=== PATIENT | female | born 1960 | race Hispanic/Latino ===

== ENCOUNTER → 2018-11-07 | Outpatient (CLI) | payer BC | END | disposition home or self-care (01) | LOC: RAH 07:56 | PROVIDERS: ATTEND Internal Medicine Gastroenterology | DX: K21.9 Gastro-esophageal reflux disease without esophagitis (principal) | CPT/HCPCS: 74220 ==

== ENCOUNTER → 2024-03-27 | Outpatient (CLI) | payer BC ==
--- NOTE | 2024-03-27 14:33 | HMCIMG ---
CT LOW EXT W/O CONTRAST HISTORY: Left hip disorder COMPARISON: None TECHNIQUE: Multiple sequential axial images of the left hip were obtained including post processing sagittal and coronal reconstruction images. Patient was not given contrast through intravenous route. FINDINGS: Bony osteopenia is seen. Orthopedic fixation plates and screws are seen traversing the proximal femur. No acute displaced fracture or dislocation is seen. Evaluation is limited because by artifacts from the prosthesis. No acute displaced fracture or dislocation is seen. There is muscle atrophy or fatty replacement noted involving the anterior lateral thigh musculature. Degenerative changes are seen. IMPRESSION: 1. No fracture is seen. Findings as described above. CT was performed with one or more following dose reduction techniques: automated exposure control, adjustment of the mA and kv according to patient's size, or use of a iterative reconstruction technique.
--- NOTE | 2024-03-27 15:34 | HMCIMG ---
MR HIP LEFT WO HISTORY: Left hip pain COMPARISON: None TECHNIQUE: MRI of the left hip was performed utilizing multiple pulse sequences in axial, coronal and sagittal planes. Patient was not given contrast through intravenous route. FINDINGS: The study is limited due to paramagnetic susceptibility artifacts caused by orthopedic fixation plates and screws. This is a suboptimal study. Left hip joint cannot be well evaluated. No definite MR evidence of bone edema is seen in this limited study. IMPRESSION: 1. Suboptimal study due to extensive artifacts from orthopedic fixation plates and screws of the left proximal femur.
== END | disposition home or self-care (01) ==
LOC: RAH 13:07
PROVIDERS: ATTEND Orthopaedic Surgery
DX: M16.12 Unilateral primary osteoarthritis, left hip (principal); M62.58 Muscle wasting and atrophy, not elsewhere classified, other site; M85.88 Other specified disorders of bone density and structure, other site; M89.252 Other disorders of bone development and growth, left femur; M89.9 Disorder of bone, unspecified
CPT/HCPCS: 73700; 73721

== ENCOUNTER 2024-06-26 06:32 | Observation (INO) | payer BC ==
[2024-06-24 11:12] LABS: CREATININE 0.5 mg/dL (0.5-1.0); POTASSIUM 5.8 mmol/L (3.5-5.1)
[2024-06-24 11:15] VITALS: BP_SYST 162; BP_SYST 184; BP_DIAS 74; PULSE 73; RESP 18; TEMP 97.7
[2024-06-24 11:55] LABS: BASOPHILS # (AUTO) 0.04 K/uL (0.00-0.20); EOSINOPHILS # (AUTO) 0.29 K/uL (0.00-0.70); EOSINOPHILS % (AUTO) 7.5 % (0.0-8.0); HEMATOCRIT 40.1 % (36-48); IMMATURE GRANULOCYTE ABSOLUTE 0.01 K/uL (0-1); LYMPHOCYTES # (AUTO) 1.8 K/uL (1.0-4.8); LYMPHOCYTES % (AUTO) 45.8 % (21.0-51.0); MEAN CORPUSCULAR HEMOGLOBIN 29.9 pg (27.0-33.0); MEAN CORPUSCULAR HGB CONC 32.9 g/dL (32.0-36.0); MEAN CORPUSCULAR VOLUME 90.9 fL (79-99); MONOCYTES # (AUTO) 0.4 K/uL (0.1-1.0); MONOCYTES % (AUTO) 9.5 % (3.0-13.0); NEUTROPHILS # (AUTO) 1.4 K/uL (1.8-7.7); NEUTROPHILS % (AUTO) 35.9 % (40.0-77.0); PLATELET COUNT (AUTO) 235 K/uL (130-400); RED BLOOD CELL COUNT(AUTO) 4.41 MIL/uL (4.00-5.50); RED CELL DISTRIBUTION WIDTH 12.7 % (11.0-15.5); WHITE BLOOD COUNT (AUTO) 3.9 K/uL (4.8-10.8)
--- NOTE | 2024-06-25 10:18 | NUR ---
RE:LABS REPORTED BMP RESULTS TO DR ARAUJO, RECEIVED ORDERS TO REPEAT POTASSIUM IN AM.
[2024-06-26] VITALS (26 sets, daily range): BP systolic 101–176; BP diastolic 38–84; PULSE 48–80; RESP 14–18; TEMP 97.4–97.6; O2SAT 0–96
[~2024-06-26] VITALS: Ht 144.8 cm; Wt 76.3 kg
[~2024-06-26 06:32] MED LIST: ACET-2247 PO; IBUP-1673 PO; LEVO75CA6 PO
[2024-06-26] MEDS ORDERED: LACTATED RINGERS 1000ML IV SCH (07:30)
[2024-06-26] MEDS: ceFAZolin SODIUM 2 GM VIAL ONE (08:17)
[2024-06-26] MEDS: LACTATED RINGERS 1000ML 1,000 ML IV ONE (08:18)
[2024-06-26] MEDS ORDERED: LIDOCAINE HCL MPF 1% 5ML VIAL ONE (08:59)
[2024-06-26] MEDS ORDERED: proPOFol 10 MG/ML 20ML VIAL IV ONE (09:00)
[2024-06-26] MEDS ORDERED: MIDAZOLAM HCL 1 MG/ML 2ML VIAL ONE (09:01)
[2024-06-26] MEDS ORDERED: FENTanyl CITRate PF 50 MCG/1 ML 2ML VIAL ONE ×2 (09:01→12:11)
[2024-06-26] MEDS ORDERED: ROPivacaine 0.5% 5MG/ML 30ML ONE (09:08)
[2024-06-26] MEDS ORDERED: ceFAZolin SODIUM 1 GM VIAL ONE (09:42)
[2024-06-26] MEDS ORDERED: NEOSTIGMINE METHYLSULFATE 1MG/ML IV ONE (09:47)
[2024-06-26] MEDS ORDERED: GLYCOPYRROLATE 0.2 MG/ML 5 ML VIAL ONE (09:47)
[2024-06-26] MEDS ORDERED: phenylEPHRINE HCL 10 MG/ML 1ML VIAL IV ONE (09:47)
[2024-06-26] MEDS: ceFAZolin SODIUM 2 GM VIAL IVPB ONE (10:00)
[2024-06-26] MEDS: ceFAZolin SODIUM 1 GM VIAL IRRIG ONE (11:01)
--- NOTE | 2024-06-26 12:52 | OP ---
Operative Note: DATE OF PROCEDURE: 06/26/24 SURGEON: ERLIN LU MD UNIFORM MAKER: [Phylicia Rivera CFA] ANESTHESIA: [General anesthesia plus regional block] ANESTHESIOLOGIST/INNER TUBE TUBER MACHINE OPERATOR: [Noris Jean CRNA] PREOPERATIVE DIAGNOSIS: [Painful hardware left hip] POSTOPERATIVE DIAGNOSIS: [Same plus trochanteric bursitis] PROCEDURE: [Removal of DHS plate, bone allograft placement, bursectomy] ESTIMATED BLOOD LOSS: [100 mL] INDICATIONS: [The patient is a 64-year-old female with history of pain to the left hip present in the lateral and anterior aspect of the joint. The patient has a history of a femur fracture in the past that was the proximally more than 20 years ago and that was then redone 20 years ago with a DHS plate. The pat ient has complained of pain and the studies have been negative but we are not able to do an MRI due to the metal artifact we saw in the CT scan. Because the patient has been in the lateral aspect of the hip we are going to remove the late and the hip screw in the same time bone allograft of the femoral neck to assist with the healing and prevent the fracture. Procedure understood, risks, benefits and possible complications and the patient agreed signed the consent] DESCRIPTION OF PROCEDURE: [After adequate general anesthesia and regional block applied the patient was placed in the right lateral decubitus and the left lower extremity prepped and draped in the usual manner. The patient had a long surgical scar in the lateral aspect of the thigh but it was not in relation to the proximal femur and for the wrist and a separate incision was carried down from the proximal aspect of with the plate was and distal to the skin followed by incision of the thick subcutaneous tissue. The tensor fascia valorie was then opened longitudinally and the tip of the plate was identified and noted that there was some bursitis and inflammation fluid which was removed and the bursa debrided. Then we proceeded to open the vastus lateralis posteriorly and in a longitudinal manner exposed in the plate. First the proceeded to remove the locking screw in the hip screw area and then the three cortical screws present in the lateral aspect of the femur. Then with the use of an osteotome we are able to elevate the plate and this was removed. We had significant difficulty removing the hip screw requiring significant time and required multiple instruments until we finally were able to remove it. The wound was copiously irrigated with antibiotic solution the femoral neck defect was debrided with a curette and after this was achieved with the use of the C-arm for evaluation we proceeded then to back cancellous allograft 30 cc into the femoral neck using the C-arm for assistance. The bone adequate was 1st obtained and put in a solution with Ancef for 15 minutes before morselizing it and then passing it to the OR table to be applied. Once the grafting was completed we proceeded then to irrigate the wound and proceeded to close it with a approximation of the vastus lateralis with #1 Vicryl crossed stitches followed by approximation of the tensor fascia valorie with #1 Vicryl crossed stitches]. The subcutaneous tissue was closed in two layers the deeper one with the same kind of Vicryl single stitches in the subcutaneous wound with a 2-0 Vicryl inverted stitches. The skin was then approximated with 3-0 Monocryl subcuticularly. Dermabond was placed to cover the incision and this a soft dressing was applied to protected. The drapes were then removed, the patient was not to the bed and taken to re covery room for follow-up by anesthesia. Final x-rays were obtained after the closure. ERLIN LU MD June 26, 2024 12:52
[2024-06-26] MEDS ORDERED: DiphenhydrAMINE HCL 25 MG CAPSULE PO PRN (13:00)
[2024-06-26] MEDS ORDERED: HYDROcodone/APAP 5/325 1 TAB TABLET PO PRN (13:00)
[2024-06-26] MEDS: 0.9%NACL 1000ML 1,000 ML IV SCH (13:00)
[2024-06-26] MEDS: FENTanyl CITRate PF 50 MCG/1 ML 2ML VIAL ONE (13:20)
--- NOTE | 2024-06-26 14:44 | HMCIMG ---
Fluoroscopic guidance History: ORIF LEFT HIP, REVISION, SX Fluoroscopic guidance provided. Procedure by ordering physician in operating room suite with fluoroscopic guidance. Several spot images were obtained. Impression: Fluoroscopic guidance.
[2024-06-26] MEDS: HYDROcodone/APAP 5/325 1 TAB TABLET PO PRN (15:22)
[2024-06-26] MEDS: ketOROlac 30MG VIAL (30MG/ML) IV PRN (16:47)
--- NOTE | 2024-06-26 19:03 | NUR ---
Pt has not voided. Informed nightman TEST GRADER.
--- NOTE | 2024-06-26 19:30 | NUR ---
unable to void unable to void , bladder distended, bladder scanner performed showing 760 cc urine in bladder, straight cath performed by female nurse meghan jackson rn using 16 ukrainian catheter using aseptic technique, obtained 900 cc of clear yellow urine, tolerated well, patient stated " I FEEL MUCH BETTER THANK YOU' INSTRUCT PATIENT TO CALL NURSE WHEN URGE TO VOID, REINFORCE IS PREVIOUSLY DONE WITH MAXIMUM VOLUME INSPIRATION ON 1250 , CALL GRACE AT REACH
[2024-06-26] MEDS: ceFAZolin SODIUM 2 GM VIAL IVPB SCH (19:35)
[2024-06-26] MEDS: FAMOTIDINE 20MG TAB PO SCH (19:37)
[2024-06-27] VITALS: BP 109/60; PULSE 65; RESP 18; TEMP 97.6
--- NOTE | 2024-06-27 03:30 | NUR ---
unable to void unable to void, c/o pain to bladder, bladder scan performed reading 600, called dr le informed with orders, f/c 16 gauge placed by joseph duran lvn obtained 700 cc of clear yellow urine, tolerated well,per dr. le leave f/c indwelling
[2024-06-27 04:00] VITALS: BP 132/65; PULSE 71; RESP 18; TEMP 98
[2024-06-27] MEDS: levoTHYROxine 75 MCG TABLET ONE (05:28)
[2024-06-27] MEDS: levoTHYROxine 75 MCG TABLET PO SCH (06:17)
[2024-06-27 08:00] VITALS: BP 124/61; PULSE 75; RESP 18; TEMP 98; O2SAT 95
[2024-06-27] MEDS: polyETHYLene GLYCol 3350 17 GM POWD.PACK PO SCH (08:30)
[2024-06-27] MEDS: ENOXAPARIN SODIUM 40 MG/0.4 ML SYRINGE SQ SCH (08:31)
--- NOTE | 2024-06-27 12:50 | PN ---
Postop day 1., status post left hip hardware removal, bone allograft placement in the femoral neck. Vital signs stable, afebrile. The patient was supposed to be released today being only on observation but she developed urinary retention very early this morning and a Rodriguez catheter had to be inserted after 2nd bladder evacuation was performed. The patient is doing well. She reports that her pain level is different than before surgery and is in the controlled. She did okay with PT this morning. Her dressing is intact. Her distal neurovascular exam is normal. Assessment: Status post hardware removal left hip. Plan: The patient will be having her Rodriguez catheter removed at six in the morning and see if she can urinate on her own tomorrow morning or afternoon and then dismiss home. Continue with physical therapy Vitals/Labs Vital Signs Date Time Temp Pulse Resp B/P (MAP) Pulse Ox O2 Delivery O2 Flow Rate FiO2 06/27/24 08:00 98.1 75 18 124/61 95 Room Air 06/27/24 04:00 21 06/26/24 20:00 0 Medications Current Medications Lactated Ringer's 1,000 ml KVO IV; Start 06/26/24 at 07:30; Stop 07/26/24 at 07:29 Cefazolin Sodium 2 gm STK-MED ONCE .ROUTE; Start 06/26/24 at 07:42; Stop 06/26/24 at 07:42; Status DC Lactated Ringer's 1,000 ml @ As Directed STK-MED ONCE IV Last administered on 06/26/24at 08:18; Start 06/26/24 at 07:42; Stop 06/26/24 at 07:42; Status DC Lidocaine HCl 5 ml STK-MED ONCE .ROUTE; Start 06/26/24 at 08:59; Stop 06/26/24 at 08:59; Status DC Propofol 200 mg STK-MED ONCE IV; Start 06/26/24 at 09:00; Stop 06/26/24 at 09:01; Status DC Midazolam HCl 2 mg STK-MED ONCE .ROUTE; Start 06/26/24 at 09:01; Stop 06/26/24 at 09:01; Status DC Rocuronium Alto 500 mg STK-MED ONCE .ROUTE; Start 06/26/24 at 09:01; Stop 06/26/24 at 09:01; Status DC Fentanyl Citrate 100 mcg STK-MED ONCE .ROUTE; Start 06/26/24 at 09:01; Stop 06/26/24 at 09:01; Status DC Ropivacaine 150 mg STK-MED ONCE .ROUTE; Start 06/26/24 at 09:08; Stop 06/26/24 at 09:08; Status DC Cefazolin Sodium 1 gm STK-MED ONCE .ROUTE; Start 06/26/24 at 09:42; Stop 5 at 09:42; Status DC Phenylephrine HCl 10 mg STK-MED ONCE IV; Start 06/26/24 at 09:47; Stop 06/26/24 at 09:47; Status DC Glycopyrrolate 1 mg STK-MED ONCE .ROUTE; Start 06/26/24 at 09:47; Stop 06/26/24 at 09:47; Status DC Neostigmine Methylsulfate 10 mg STK-MED ONCE IV; Start 06/26/24 at 09:47; Stop 06/26/24 at 09:47; Status DC Cefazolin Sodium 2 gm STK-MED ONCE IVPB Last administered on 06/26/24at 10:00; Start 06/26/24 at 10:00; Stop 06/26/24 at 10:42; Status DC Fentanyl Citrate 100 mcg STK-MED ONCE .ROUTE; Start 06/26/24 at 12:11; Stop 06/26/24 at 12:11; Status DC Cefazolin Sodium 1 gm STK-MED ONCE IRRIG Last administered on 06/26/24at 11:01; Start 06/26/24 at 11:01; Stop 06/26/24 at 12:45; Status DC Sodium Chloride 1,000 ml @ 100 mls/hr Q10H IV Last administered on 06/27/24at 08:38; Start 06/26/24 at 13:00; Stop 06/27/24 at 12:59 Acetaminophen/ Hydrocodone Bitart 1 tab Q4H PRN PO; Start 06/26/24 at 13:00; Stop 07/01/24 at 12:59 Acetaminophen/ Hydrocodone Bitart 2 tab Q4H PRN PO Last administered on 06/27/24at 04:34; Start 06/26/24 at 13:00; Stop 07/01/24 at 12:59 Enoxaparin Sodium 40 mg DAILY SQ Last administered on 06/27/24at 08:31; Start 06/27/24 at 09:00; Stop 07/27/24 at 08:59 Polyethylene Glycol 17 gm DAILY PO Last administered on 06/27/24at 08:30; Start 06/27/24 at 09:00; Stop 07/27/24 at 08:59 Psyllium Hydrophilic Mucilloid 1 tbs DAILYLUNCH PO; Start 06/27/24 at 12:00; S top 07/27/24 at 11:59 Ketorolac Tromethamine 30 mg Q6H PRN IV Last administered on 06/27/24at 03:30; Start 06/26/24 at 13:00; Stop 07/01/24 at 12:59 Famotidine 20 mg BID PO Last administered on 06/27/24at 08:30; Start 06/26/24 at 21:00; Stop 07/26/24 at 20:59 Diphenhydramine HCl 25 mg Q6H PRN PO; Start 06/26/24 at 13:00; Stop 07/26/24 at 12:59 Cefazolin Sodium 2 gm Q8H IVPB Last administered on 06/27/24at 02:56; Start 06/26/24 at 19:00; Stop 06/27/24 at 03:01; Status DC Fentanyl Citrate 100 mcg STK-MED ONCE .ROUTE Last administered on 06/26/24at 13:20; Start 06/26/24 at 13:17; Stop 06/26/24 at 13:17; Status DC Levothyroxine Sodium 75 mcg ACBKFST PO Last administered on 06/27/24at 06:17; Start 06/27/24 at 07:30; Stop 07/27/24 at 07:29 Levothyroxine Sodium 75 mcg STK-MED ONCE .ROUTE; Start 06/27/24 at 05:25; Stop 06/27/24 at 05:26; Status DC ERLIN LU MD June 27, 2024 12:50
[2024-06-27] MEDS: PSYLLIUM SEED 1 EACH PACKET PO SCH (13:03)
--- NOTE | 2024-06-27 13:40 | NUR ---
DCP: INITIAL ASSESSMENT Patient lives with spouse. She has no home services or DME. Patient was independent with ADLs prior to hospitalization but will need help with ADLs upon discharged. Patient does not drive. Family will assist with transportation. PCP is Dr. Toni Mcdaniel. Pharmacy is [facility] in [place]. Patient voiced no safety concerns regarding returning home and states she has no difficulty with housing or buying food. DCP is home. Addendum: 06/27/24 at 1351 by WILLIE DO Amended: Links added.
--- NOTE | 2024-06-27 15:10 | NUR ---
CM NOTE Discussed dc planning with pt and with daughter present. plan is for home. states needs walker,choice letter obtained. orders obtained from dr le. Referral made to [facility] for standard walker and 3 in 1 bsc, and also for [facility] Home health for rehab. pending approval
[2024-06-27 16:00] VITALS: BP 130/68; PULSE 73; RESP 18; TEMP 97.6
--- NOTE | 2024-06-27 16:21 | NUR ---
cm note received call from keely judge and states pt is approved for [facility], nurse can call report at dc. [phone]. updated primary nurse meghan that pt is accepted at [facility], pending approval for [facility],will need to provide loaner.
[2024-06-27 20:00] VITALS: BP 102/56; PULSE 60; RESP 20; TEMP 98
[2024-06-28] VITALS: BP 112/48; PULSE 68; RESP 20; TEMP 98.7
[2024-06-28 04:00] VITALS: BP 117/62; PULSE 81; RESP 20; TEMP 98
--- NOTE | 2024-06-28 06:51 | NUR ---
f/c f/c discontinued as ordered by joseph duran lvn, tolerated well, dtv, instruct patient to call when urge to void
[2024-06-28 08:09] VITALS: BP 129/59; PULSE 66; RESP 19; TEMP 97.9
[2024-06-28] MEDS ORDERED: HYDR-4060 PO (11:11)
[2024-06-28] MEDS ORDERED: AEC81 PO (11:11)
--- NOTE | 2024-06-28 11:28 | DS ---
DISCHARGE SUMMARY [Date of admission: 06/26/2024 Date of discharge: 06/28/2024 Final diagnosis: Painful hardware left hip Surgical procedures: Removal of painful hardware left hip on 06/26/2024 Summary of History and Physical: The patient is a 64 year-old female with history of painful left hip that has been present for several years and has been treated conservatively with no longer adequate response to treatment. The patient is being admitted for hardware removal Previous medical history: Hypothyroidism Previous surgical history: Hip and knee surgery Family history: Diabetes mellitus, hypertension Social history: Negative for use of tobacco or alcohol. Allergies: Reports allergy to codeine. Review of system: Negative on admission Hospital course: The patient was admitted and taken to the operating room for removal of the hardware in the left hip, procedure that went uneventful. Postoperatively the patient remained hemodynamically stable and afebrile. The patient received antibiotic and anticoagulation prophylaxis as per protocol. The patient was evaluated by physical therapy and started rehabilitation treatment with ambulation with the use of walker, weightbearing as tolerated, hip precautions, range of motion exercises and bed transfers. The patient was also evaluated by case management and arrangements were made for discharge . She developed a problem with urinary retention that required debridement of a Rodriguez catheter which was removed on postop day 2 and at that time the patient was able to urinate freely. The patient tolerated diet well. On postop day #2 all the arrangements were completed and the patient was dismissed . Condition on discharge: Good Disposition: The patient will be dismissed home with home health . Follow-up will be done at the office in 3 weeks. The patient is to continue with physical therapy and rehabilitation at home and be ambulatory with the use of a walker, weightbearing as tolerated and continue with hip precautions. Continue taking pain medication as instructed as well as anticoagulation prophylaxis. Continue with home medications also as instructed and continue with pre admission diet.] ERLIN LU MD] ERLIN LU MD June 28, 2024 11:28
[2024-06-28 12:00] VITALS: BP 125/58; PULSE 64; RESP 19; TEMP 97.5
--- NOTE | 2024-06-28 12:45 | NUR ---
DISCHARGE REPORT GIVEN TO [facility]RA AT [facility]. DISCHARGE INSTRUCTIONS REVIEWED WITH PT. ALL QUESTIONS ANSWERED AT THIS TIME. PT LEAVING WITH WALKER ON LOAN.
== END 2024-06-28 12:35 | disposition home health service (06) ==
LOC: DAH 06:32 → DAHIP 06:33 → DAH 06:33 → 4DH 14:30
PROVIDERS: ADMIT Orthopaedic Surgery; ATTEND Orthopaedic Surgery
DX: M89.252 Other disorders of bone development and growth, left femur (principal); M70.62 Trochanteric bursitis, left hip; T84.84XA Pain due to internal orthopedic prosthetic devices, implants and grafts, initial encounter; E03.9 Hypothyroidism, unspecified; R33.9 Retention of urine, unspecified; Z98.890 Other specified postprocedural states; Z79.899 Other long term (current) drug therapy; Z88.5 Allergy status to narcotic agent; Z90.710 Acquired absence of both cervix and uterus; Y83.1 Surgical operation with implant of artificial internal device as the cause of abnormal reaction of the patient, or of later complication, without mention of misadventure at the time of the procedure
CPT/HCPCS: 80048; 85025; 36415 ×2; 20680; 96365; 96375; 64447; 84132; 88300; 73503; 97161; 97530 ×5; 96376 ×2; 96372 ×2; 96366; 97116 ×3; G0378 ×45; A4663; J7120; J3010 ×3; J0690 ×6; J2250; J2704; J3490 ×2; J1885 ×5; J2710; J2795; J2371; A4930 ×2; A6255; A4215; A4223 ×2; A4222; A4221; A4216; C9362; J1650 ×2

== ENCOUNTER → 2024-09-03 | Outpatient (CLI) | payer BC, SELFPAY ==
[~2024-09-03] MED LIST changes: +AEC81 PO; +HYDR-4060 PO
--- NOTE | 2024-09-04 08:53 | HMCIMG ---
EXAM: MR Left Hip without contrast. CLINICAL HISTORY: Sprain. TECHNIQUE: Multisequence, multiplanar magnetic resonance images of the left hip without intravenous contrast. CONTRAST: None. COMPARISON: MRI left hip dated 03/27/2024. FINDINGS: There is a tubular defect with sclerotic margins in the left femoral neck secondary to prior intramedullary nail removal. No abnormal bone marrow signals or osteomyelitis is evident. There is about 1.8 x 2.7 x 3.4 cm localized soft tissue edema lateral to the proximal femur with diffuse fatty stranding around the operative bed, compatible with operative bed inflammation. No drainable fluid collection or abscess is evident. Susceptibility artifacts around the operative bed, likely secondary to surgical clips. No acute fracture or avascular necrosis. Stable mild osteoarthritis in the femoroacetabular joint. There is no displaced labral tear. Physiological amount of fluid within the hip joints. Normal insertion of the gluteus medius and minimus tendons at the greater trochanter without greater trochanteric bursitis. The iliopsoas tendons appear intact without lesser trochanteric bursitis. The hamstring origins at the ischial tuberosities are normal. The musculature of the pelvis, including the piriformis muscles, appears within normal limits. The sciatic nerves appear within normal limits. The included bowel loops are within normal limits. The urinary bladder is suboptimally distended and grossly unremarkable. The reproductive organs are not visualized. No pathological lymphadenopathy. Grossly unremarkable neurovascular structures. IMPRESSION: There is a tubular defect with sclerotic margins in the left femoral neck secondary to prior intramedullary nail removal. No abnormal bone marrow signals or osteomyelitis is evident. Localized soft tissue inflammation around the operative bed without drainable fluid collection or abscess. The findings are new compared to the previous MRI of the left hip dated 03/27/2024. The remaining findings are grossly unchanged. /Waggoner
== END | disposition home or self-care (01) ==
LOC: RAH 14:22
PROVIDERS: ATTEND Orthopaedic Surgery
DX: S73.192D Other sprain of left hip, subsequent encounter (principal); M16.12 Unilateral primary osteoarthritis, left hip; N32.89 Other specified disorders of bladder; R60.0 Localized edema; X58.XXXD Exposure to other specified factors, subsequent encounter
CPT/HCPCS: 73721